=== PATIENT | female | born 1990 | race Caucasian/White ===

== ENCOUNTER → 2021-06-25 12:57 | Outpatient (BNVA) | payer SELFPAY | PROVIDERS: PCP Nurse Practitioner Family; Visit Provider Nurse Practitioner Family | DX: Z20.2 Contact with and (suspected) exposure to infections with a predominantly sexual mode of transmission (principal) | CPT/HCPCS: 80074; 86592; 87491; 87591; 87661; 87806 ==

== ENCOUNTER → 2021-07-22 14:09 | Outpatient (BNVA) | payer OTHER, SELFPAY | PROVIDERS: PCP Nurse Practitioner Family; Visit Provider Nurse Practitioner Psychiatric/Mental Health | DX: F31.62 Bipolar disorder, current episode mixed, moderate (principal); F41.1 Generalized anxiety disorder; F43.12 Post-traumatic stress disorder, chronic; Z79.899 Other long term (current) drug therapy; Z76.89 Persons encountering health services in other specified circumstances | CPT/HCPCS: 80053; 80061; 81025; 83036 ==